=== PATIENT | female | born 1970 | race Caucasian/White ===

== ENCOUNTER 2016-12-13 07:23 | Emergency (ER) | payer OTHER ==
[~2016-12-13] VITALS: Ht 170.2 cm; Wt 100.0 kg
[2016-12-13 07:25] VITALS: BP 147/116; PULSE 89; RESP 15; TEMP 98; O2SAT 98
[2016-12-13] MEDS ORDERED: KETOROLAC TROMETHAMINE 60 MG/2 ML (IM) VIAL IM ONE (08:00)
--- NOTE | 2016-12-13 08:06 | PD ---
HPI . s/p fall this morning, hurt left wrist and buttocks Chief Complaint: Fall Time Seen by Provider: 07:42 Travel History International Travel<30 days: No Contact w/Intl Traveler<30days: No Traveled to known affect area: No History of Present Illness HPI 46-year-old female with no significant past medical history here with complaints of falling this morning after slipping in dog urine. Patient states she slipped on her laminate gisela and hurt her left wrist as she was trying to break her fall. She also admits to some pain deep within her buttocks. Patient tells me that she did hit her head, however she did not lose consciousness. She denies any headache, blurry vision, dizziness, weakness, or visual changes. In regards to her left wrist pain, she rates it as an 8 out of 10. She points to the distal radius and tells me this is where most of the pain is. She is unable to rotate, flex or extend without increased difficulty. She does have some pain when sitting and standing, however she is ambulatory and her hip joints are stable. Her bp is elevated and she has no hx of HTN. PFSH Past Medical History ?: Not LMP: 12/07/16 Social History Tobacco Use: No Allergies-Medications (Allergen,Severity, Reaction): Coded Allergies: No Known Allergies (Unverified , 12/13/16) Reported Meds & Prescriptions Reported Meds & Active Scripts Active Tramadol (Tramadol HCl) 50 Mg Tab 50 Mg PO Q6H PRN Ibuprofen 800 Mg Tab 800 Mg PO TID Review of Systems General / Constitutional: No: Fever Eyes: No: Visual changes HENT: No: Headaches Cardiovascular: No: Chest Pain or Discomfort Respiratory: No: Shortness of Breath Gastrointestinal: No: Abdominal Pain Genitourinary: No: Dysuria Musculoskeletal: Positive: Pain (left wrist, buttocks) Skin: No Rash Neurologic: No: Weakness, Dizziness, Syncope, Ataxia, Headache Psychiatric: No: Depression Endocrine: No: Polydipsia Hematologic/Lymphatic: No: Easy Bruising Physical Exam Narrative GENERAL: AAO x 3, no acute distress, Well-nourished, well-developed patient. SKIN: Warm and dry. No visible rashes or bruising. HEAD: Normocephalic and atraumatic. EYES: No scleral icterus. No injection or drainage. ENT: No nasal drainage noted. Mucous membranes pink. Airway patent. NECK: Supple, trachea midline. No JVD. CARDIOVASCULAR: Regular rate and rhythm without murmurs, gallops, or rubs. RESPIRATORY: Breath sounds equal bilaterally. No accessory muscle use. No rhonchi or rales. GASTROINTESTINAL: Abdomen soft, non-tender, nondistended. EXTREMITIES: No cyanosis or edema. Left wrist, radial and ulnar pulses intact. Sensation is normal. Cap refill is normal. Point tenderness over distal radius. Core Machine Tender strength is diminished due to pain. Hip joints stable without laxity. Normal gait. BACK: Nontender without obvious deformity. No CVA tenderness. PSYCH: AAO x 3, normal affect. Data Data Last Documented VS Vital Signs Date Time Temp Pulse Resp B/P Pulse Ox O2 Delivery O2 Flow Rate FiO2 12/13/16 07:25 98.0 89 15 147/116 98 Orders Wrist, Complete ([id number]) (12/13/16 07:51) Ketorolac Inj (Toradol Inj) (12/13/16 08:00) Splinting (12/13/16 ) Sling Cradle Arm (12/13/16 ) Fiberglass Sugartong Sp Ad Arm (12/13/16 ) Sling Cradle Arm (12/13/16 ) MDM Medical Decision Making Medical Screen Exam Complete: Yes Emergency Medical Condition: Yes Interpretation(s) distal radius fracture Differential Diagnosis wrist fracture, wrist sprain, Narrative Course 46-year-old female with no significant past medical history here with complaints of falling this morning after slipping in dog urine. Patient states she slipped on her laminate gisela and hurt her left wrist as she was trying to break her fall. She also admits to some pain deep within her buttocks. Patient tells me that she did hit her head, however she did not lose consciousness. She denies any headache, blurry vision, dizziness, weakness, or visual changes. In regards to her left wrist pain, she rates it as an 8 out of 10. She points to the distal radius and tells me this is where most of the pain is. She is unable to rotate, flex or extend without increased difficulty. She does have some pain when sitting and standing, however she is ambulatory and her hip joints are stable. Patient seen and examined. Imaging indicated for wrist as there is point tenderness. Advised against imaging of coccyx as there is no treatment. Hips are stable and gait is normal. Do not recommend additional imaging. I explained that to the patient and she was understanding. Toradol for acute pain. Xray positive for fracture. Prelim interpretation Sugar tong split and sling by ortho Advised tramadol PRN pain.Ibuprofen given as anti-inflammatory. Advised f/u with ortho as outpatient. Patient verbalized understanding of instructions, questions were answered, and thanked me for their care. I advised them if their condition worsens, please return to the nearest emergency room for further care. Diagnosis Primary Impression: Wrist pain, left Additional Impressions: Acute buttock pain Fall Qualified Code: W19.XXXA - Fall, initial encounter Elevated blood pressure reading without diagnosis of hypertension Patient Instructions: General Instructions, Hypertension (ED), Wrist Fracture in Adults (ED) Additional Instructions: Please follow-up with your primary care provider and ortho for further care of your wrist fracture. Take all medications as prescribed. Return to the emergency room if your symptoms return or worsen Scripts Tramadol 50 Mg Tab50 Mg PO Q6H PRN (PAIN) #20 TAB Ref 0 Prov:Angeles Lora DO 12/13/16 Ibuprofen 800 Mg [id number] Mg PO TID #30 TAB Ref 0 Prov:Jojo Brush 12/13/16 Disposition: 01 DISCHARGE HOME Condition: Stable Jojo Brush Dec 13, 2016 08:05
[2016-12-13] MEDS ORDERED: IBUP800T23 PO (08:37)
[2016-12-13] MEDS ORDERED: TRAM50TA PO ×2 (08:37→08:39)
--- NOTE | 2016-12-13 09:56 | RADRPT ---
EXAM DATE/TIME: 12/13/2016 08:20 [facility] COMPARISON: No previous studies available for comparison. INDICATIONS : Left wrist pain from fall. MEDICAL HISTORY : None. SURGICAL HISTORY : None. ENCOUNTER: Initial ACUITY: 1 day PAIN SCORE: 7/10 LOCATION: Left wrist. FINDINGS: There is an acute nondisplaced fracture involving the left distal radius with involvement of the eric cular surface. CONCLUSION: 1. Acute nondisplaced fracture involving the left distal radius with involvement of the articular bose rface. Keven Hargrove MD on December 13, 2016 at 9:51 Board Certified Radiologist. This report was verified electronically.
== END 2016-12-13 10:00 | disposition home or self-care (01) ==
LOC: NEPB 07:23
DX: M25.532 Pain in left wrist (principal); M54.89 Other dorsalgia; R03.0 Elevated blood-pressure reading, without diagnosis of hypertension; W01.0XXA Fall on same level from slipping, tripping and stumbling without subsequent striking against object, initial encounter; Y93.89 Activity, other specified; Y92.89 Other specified places as the place of occurrence of the external cause; Y99.9 Unspecified external cause status
CPT/HCPCS: 29125; 73110; 96372; 99284; J1885